=== PATIENT | male | born 1940 | race Caucasian/White ===

== ENCOUNTER 2016-05-17 13:18 | Day surgery (SDC) | payer OTHER ==
[~2016-05-17] VITALS: Ht 182.9 cm; Wt 86.2 kg
[~2016-05-17 13:18] MED LIST: AMIODARONE HCL200 MG PO; ASPIR 8181 M1 PO; ATORVASTATIN CA40 MG PO; BICALUTAMIDE50 MG PO; CALCITRIOL0.25 MCG PO; CALCIUM ACETAT667 MG PO; CARDIZEM CD120 MG PO; CARVEDILOL6.25 MG PO; CLOTRIMAZOLE15 GM TP; HYDROCODON-ACE1 EAC7 PO; LEVAQUIN500 MG PO; NABI650T PO; SODIUM POL15 GM/60 M PO
[2016-05-17 14:47] LABS: METH RESISTANT S AUREUS PCR NEGATIVE (NEGATIVE)
[2016-05-17 14:48] LABS: PROBE CHECK PASS; SPECIMEN PROCESSING CONTROL PASS
== END 2016-05-17 16:58 ==
LOC: CATH 13:18
PROVIDERS: Surgery
PROC: 02HV33Z Insertion of Infusion Device into Superior Vena Cava, Percutaneous Approach (ICD-10-PCS; principal; 2016-05-17)
DX: T82.898A Other specified complication of vascular prosthetic devices, implants and grafts, initial encounter (principal); Y83.8 Other surgical procedures as the cause of abnormal reaction of the patient, or of later complication, without mention of misadventure at the time of the procedure; Z99.2 Dependence on renal dialysis; N18.6 End stage renal disease
CPT/HCPCS: 87641; C1750; J1644; J2250; J3010; S0020

== ENCOUNTER 2016-07-21 16:21 | Emergency (ER) | payer OTHER ==
[~2016-07-21] VITALS: Ht 180.3 cm; Wt 89.4 kg
[2016-07-21 17:13] VITALS: BP 114/74
[2016-07-21 17:25] LABS: ADD MIUA? YES; BILIRUBIN NEGATIVE; BLOOD MODERATE; COLOR YELLOW ((YELLOW)); GLUCOSE (STRIP) NEGATIVE; KETONES NEGATIVE; LEUKOCYTES LARGE; NITRITE NEGATIVE; PROTEIN (STRIP) 100; SPECIFIC GRAVITY 1.006 (1.000-1.030); UROBILINOGEN 0.2 MG/DL (0.2-1.0)
[2016-07-21 17:55] LABS: BACTERIA NONE SEEN /HPF; EPITHELIAL CELLS NONE SEEN /HPF; MUCUS NONE SEEN /LPF; RED BLOOD CELLS TNTC /HPF (0-5); UCUL ADDED? YES; WHITE BLOOD CELLS TNTC /HPF (0-5)
== END 2016-07-21 18:24 | disposition home or self-care (01) ==
LOC: EME 16:21 → EXP 16:21
PROVIDERS: Nurse Practitioner Family
PROC: 0T9B70Z Drainage of Bladder with Drainage Device, Via Natural or Artificial Opening (ICD-10-PCS; principal; 2016-07-21)
DX: Z46.6 Encounter for fitting and adjustment of urinary device (principal); I25.2 Old myocardial infarction; Z85.46 Personal history of malignant neoplasm of prostate; Z87.891 Personal history of nicotine dependence; Z99.2 Dependence on renal dialysis; N19 Unspecified kidney failure
CPT/HCPCS: 81003; 87086; 99281; 99283

== ENCOUNTER 2016-09-13 11:46 | Day surgery (SDC) | payer OTHER ==
[~2016-09-13] VITALS: Ht 182.9 cm; Wt 84.0 kg
[~2016-09-13 11:46] MED LIST changes: +BACTRIM,SEPT1 TABLET PO; +LAXATIVE SUPPOS10 MG PR; +LO-DOSE ASPIRIN81 M2 PO; +NEPHRO-VITE,1 TABLET PO; +SENSIPAR30 MG PO; +SIMVASTATIN40 MG PO; +TRAZODONE HCL50 MG PO
[2016-09-13 12:15] LABS: HEMATOCRIT 38.1 % (38.0-50.0); MCH 30.5 PG (29.0-34.0); MCHC 31.8 G/DL (30.0-36.0); MEAN PLAT.VOLUME 10.9 uM^3 (9.0-12.4); PLATELET COUNT 254 K/uL (156-360); RBC DIS.WIDTH-CV 16.2 % (11.8-14.6); RBC DIS.WIDTH-SD 56.1 % (39-53); RED BLOOD COUNT 3.97 M/uL (4.00-5.50); WHITE BLOOD COUNT 8.5 K/uL (4.1-10.2)
[2016-09-13 12:38] LABS: ANION GAP 10 MEQ/L (2-14); CHLORIDE 103 MEQ/L (99-109); GFR ESTIMATE (CALCULATED) 8 mL/min/; GLUCOSE 112 mg/dL (70-99); POTASSIUM 5.6 MEQ/L (3.7-5.4); SAMPLE HEMOLYSIS CHECK 0; SAMPLE ICTERIC CHECK 0; SAMPLE LIPEMIA CHECK 0; SODIUM 138 MEQ/L (136-147); UREA NITROGEN (BUN) 53 mg/dL (9-23)
[2016-09-13 12:41] VITALS: BP 121/68
[2016-09-13 13:49] LABS: METH RESISTANT S AUREUS PCR NEGATIVE (NEGATIVE); PROBE CHECK PASS; SPECIMEN PROCESSING CONTROL PASS
[2016-09-13 16:05] LABS: POINT-OF-CARE METER ID UU13113675
[2016-09-13 16:46] VITALS: BP 122/61
[2016-09-13 17:07] VITALS: BP 119/63
== END 2016-09-13 17:25 ==
LOC: SDC 11:46
PROVIDERS: Surgery
PROC: 05SD0ZZ Reposition Right Cephalic Vein, Open Approach (ICD-10-PCS; principal; 2016-09-13)
DX: E11.22 Type 2 diabetes mellitus with diabetic chronic kidney disease (principal); N18.6 End stage renal disease; Z99.2 Dependence on renal dialysis; Z88.0 Allergy status to penicillin; I25.10 Atherosclerotic heart disease of native coronary artery without angina pectoris; I25.2 Old myocardial infarction; F17.290 Nicotine dependence, other tobacco product, uncomplicated; R00.1 Bradycardia, unspecified; Z79.82 Long term (current) use of aspirin
CPT/HCPCS: 80048; 82948; 85027; 87641; J1644; J2250; J2405; J2720; J3010

== ENCOUNTER 2016-10-09 12:18 | Inpatient (IN) | payer OTHER ==
[~2016-10-09] VITALS: Ht 182.9 cm; Wt 90.0 kg
[2016-10-09 13:24] LABS: HEMATOCRIT 29.9 % (38.0-50.0); MCH 30.1 PG (29.0-34.0); MCHC 32.1 G/DL (30.0-36.0); MCV 93.7 FL (86-99); MEAN PLAT.VOLUME 9.9 uM^3 (9.0-12.4); PLATELET COUNT 270 K/uL (156-360); RBC DIS.WIDTH-CV 14.9 % (11.8-14.6); RED BLOOD COUNT 3.19 M/uL (4.00-5.50); WHITE BLOOD COUNT 9.6 K/uL (4.1-10.2)
[2016-10-09 13:33] LABS: CHLORIDE 102 mEq/L (99-109); POTASSIUM 4.9 mEq/L (3.7-5.4); SODIUM 137 mEq/L (136-147)
[2016-10-09 13:34] LABS: GLUCOSE 102 mg/dL (70-99)
[2016-10-09 13:36] LABS: ANION GAP 11 MEQ/L (2-14)
[2016-10-09 13:38] LABS: GFR ESTIMATE (CALCULATED) 11 mL/min/
[2016-10-09 13:39] LABS: UREA NITROGEN (BUN) 67 mg/dL (9-23)
[2016-10-09 13:44] LABS: TROP-I INTERPRETATION NEGATIVE; TROPONIN-I < 0.01 ng/mL (0.0-0.30)
[2016-10-09 13:52] LABS: PROTHROMBIN TIME 10.1 (9.2-11.2); PTT 30.4 (25-32)
[2016-10-09] MEDS ORDERED: NORCO 5/3251 TABLET PO (14:57)
[2016-10-09] MEDS ORDERED: PROAMATINE10 MG PO (14:58)
[2016-10-09 18:36] VITALS: BP 127/65
[2016-10-09 19:18] VITALS: BP 105/56
[2016-10-09 19:59] LABS: TROP-I INTERPRETATION NEGATIVE; TROPONIN-I < 0.01 ng/mL (0.0-0.30)
[2016-10-09 23:54] VITALS: BP 100/56
[2016-10-10 05:04] VITALS: BP 95/54
[2016-10-10 07:12] LABS: HEMATOCRIT 29.5 % (38.0-50.0); MCH 30.4 PG (29.0-34.0); MCHC 31.9 G/DL (30.0-36.0); MCV 95.5 FL (86-99); MEAN PLAT.VOLUME 10.4 uM^3 (9.0-12.4); PLATELET COUNT 292 K/uL (156-360); RBC DIS.WIDTH-CV 15.1 % (11.8-14.6); RED BLOOD COUNT 3.09 M/uL (4.00-5.50); WHITE BLOOD COUNT 8.9 K/uL (4.1-10.2)
[2016-10-10 08:06] LABS: ANION GAP 11 MEQ/L (2-14); CHLORIDE 106 MEQ/L (99-109); GFR ESTIMATE (CALCULATED) 9 mL/min/; GLUCOSE 88 mg/dL (70-99); POTASSIUM 5.5 MEQ/L (3.7-5.4); SAMPLE HEMOLYSIS CHECK 0; SAMPLE ICTERIC CHECK 0; SAMPLE LIPEMIA CHECK 0; SODIUM 139 MEQ/L (136-147); UREA NITROGEN (BUN) 77 mg/dL (9-23)
[2016-10-10 08:40] VITALS: BP 116/62
[2016-10-10 12:03] VITALS: BP 104/58
[2016-10-10 12:35] VITALS: BP 135/71
[2016-10-10 12:54] LABS: PROTHROMBIN TIME 10.5 (9.2-11.2)
[2016-10-10 17:27] VITALS: BP 106/61
[2016-10-10 19:43] LABS: TROP-I INTERPRETATION NEGATIVE; TROPONIN-I < 0.01 ng/mL (0.0-0.30)
[2016-10-10 20:02] VITALS: BP 112/62
[2016-10-11] VITALS (7 sets, daily range): BP systolic 99–144; BP diastolic 48–69
[2016-10-11 05:21] LABS: HEMATOCRIT 30.1 % (38.0-50.0); MCH 30.3 PG (29.0-34.0); MCHC 31.9 G/DL (30.0-36.0); MEAN PLAT.VOLUME 10.4 uM^3 (9.0-12.4); PLATELET COUNT 301 K/uL (156-360); RBC DIS.WIDTH-CV 15.2 % (11.8-14.6); RED BLOOD COUNT 3.17 M/uL (4.00-5.50); WHITE BLOOD COUNT 9.7 K/uL (4.1-10.2)
[2016-10-11 05:28] LABS: INTER. NORMALIZED RATIO 1.1
[2016-10-11 05:47] LABS: ANION GAP 9 MEQ/L (2-14); CHLORIDE 102 MEQ/L (99-109); GFR ESTIMATE (CALCULATED) 12 mL/min/; GLUCOSE 85 mg/dL (70-99); POTASSIUM 5.1 MEQ/L (3.7-5.4); SAMPLE HEMOLYSIS CHECK 0; SAMPLE ICTERIC CHECK 0; SAMPLE LIPEMIA CHECK 0; SODIUM 138 MEQ/L (136-147); UREA NITROGEN (BUN) 50 mg/dL (9-23)
[2016-10-11] MEDS ORDERED: DILTIAZEM 24HR180 MG PO (15:26)
[2016-10-11] MEDS ORDERED: COUMADIN5 MG PO (15:26)
[2016-10-12 03:20] VITALS: BP 103/56
[2016-10-12 07:21] LABS: INTER. NORMALIZED RATIO 1.2; PROTHROMBIN TIME 11.8 (9.2-11.2)
[2016-10-12 08:15] VITALS: BP 107/64
== END 2016-10-12 14:15 | disposition home or self-care (01) | DRG 308 ==
LOC: EME 12:18 → EDOF 16:43 → 4EAST 16:43
PROVIDERS: Emergency Medicine; Hospitalist; Internal Medicine; Internal Medicine Cardiovascular Disease
PROC: 5A1D60Z (ICD-10-PCS; principal; 2016-10-10)
DX: I48.0 Paroxysmal atrial fibrillation (principal); N18.6 End stage renal disease; E87.5 Hyperkalemia; Z99.2 Dependence on renal dialysis; R33.9 Retention of urine, unspecified; D63.1 Anemia in chronic kidney disease; R74.0 Nonspecific elevation of levels of transaminase and lactic acid dehydrogenase [LDH]; I25.10 Atherosclerotic heart disease of native coronary artery without angina pectoris; F17.210 Nicotine dependence, cigarettes, uncomplicated; I48.92 Unspecified atrial flutter
CPT/HCPCS: 71010; 80048; 84443; 84484; 85027; 85610; 85730; 93005; 93306; 99281; 99285; G0378; J1270; J1644; J7040; J7050

== ENCOUNTER → 2017-01-12 | Outpatient (CLI) | payer OTHER ==
[~2017-01-12] MED LIST changes: +COUMADIN5 MG PO; +DILTIAZEM 24HR180 MG PO; +NORCO 5/3251 TABLET PO; +PROAMATINE10 MG PO; +RENAPLEX D PO
== END | disposition home or self-care (01) ==
LOC: AMB 10:30
PROC: 02PYX3Z Removal of Infusion Device from Great Vessel, External Approach (ICD-10-PCS; principal; 2017-01-12)
DX: Z45.2 Encounter for adjustment and management of vascular access device (principal); N18.6 End stage renal disease; Z99.2 Dependence on renal dialysis

== ENCOUNTER 2017-09-18 01:20 | Inpatient (IN) | payer OTHER ==
[~2017-09-18] VITALS: Ht 182.9 cm; Wt 60.8 kg
[2017-09-18] VITALS (14 sets, daily range): BP systolic 78–126; BP diastolic 44–64
[2017-09-18 02:04] LABS: HEMATOCRIT 35.9 % (38.0-50.0); HEMOGLOBIN 11.7 G/DL (12.5-16.6); MCH 27.7 PG (29.0-34.0); MCHC 32.6 G/DL (30.0-36.0); MCV 85.1 FL (86-99); PLATELET COUNT 459 K/uL (156-360); RBC DIS.WIDTH-CV 18.6 % (11.8-14.6); RBC DIS.WIDTH-SD 57.3 % (39-53); RED BLOOD COUNT 4.22 M/uL (4.00-5.50)
[2017-09-18 02:05] LABS: WHITE BLOOD COUNT 39.2 K/uL (4.1-10.2)
[2017-09-18 02:17] LABS: ALBUMIN 2.6 g/dL (3.2-4.8); CHLORIDE 95 mEq/L (99-109); POTASSIUM 5.6 mEq/L (3.7-5.4); SODIUM 139 mEq/L (136-147)
[2017-09-18 02:19] LABS: GLUCOSE 100 mg/dL (70-99); TOTAL PROTEIN 6.4 g/dL (6.4-8.3)
[2017-09-18 02:21] LABS: TOTAL BILIRUBIN 0.5 mg/dL (0.0-1.0)
[2017-09-18 02:23] LABS: ALKALINE PHOSPHATASE 99 IU/L (3-129); CREATININE 8.6 mg/dL (0.6-1.3); GFR ESTIMATE (CALCULATED) 6 mL/min/ (58.99-99999)
[2017-09-18 02:24] LABS: UREA NITROGEN (BUN) 61 mg/dL (9-23)
[2017-09-18 02:25] LABS: AST (GOT) 19 IU/L (2-34); DIRECT BILIRUBIN 0.4 mg/dL (0.0-0.3)
[2017-09-18 02:26] LABS: ALT (GPT) 86 IU/L (3-49); LIPASE 20 U/L (1.0-51.0)
[2017-09-18 03:34] LABS: APPEARANCE TURBID ((CLEAR)); BILIRUBIN NEGATIVE; BLOOD LARGE; COLOR BROWN ((YELLOW)); GLUCOSE (STRIP) NEGATIVE; KETONES TRACE; LEUKOCYTES LARGE; NITRITE NEGATIVE; PROTEIN (STRIP) 300; SPECIFIC GRAVITY 1.015 (1.000-1.030); UROBILINOGEN 0.2 MG/DL (0.2-1.0)
[2017-09-18 03:36] LABS: UCUL ADDED? YES; WHITE BLOOD CELLS TNTC /HPF (0-5)
[2017-09-18 04:31] LABS: INTER. NORMALIZED RATIO 1.6
[2017-09-18 20:50] LABS: BASE EXCESS -2.8 mEq/L (-3 to +3); CARBOXY HGB 0.2 % (0-5); METHEMOGLOBIN 1.2 % (0-1.5); PCO2 50 mm Hg (35-45); PO2 99 mm Hg (80-100); SITE LR; pH 7.29 (7.35-7.45)
[2017-09-18 20:51] LABS: COMMENTS - BLOOD GASES C+; DEVICE VENT; FI02 60 %; MECHANICAL RATE 14 resp/min; MODE AC; PEEP 5 CM/H20; TIDAL VOLUME 500 ML; TOTAL RESP RATE 14 resp/min
[2017-09-18 22:10] LABS: BASE EXCESS -2.2 mEq/L (-3 to +3); BICARBONATE 23.2 mEq/L (22-26); CARBOXY HGB 0.3 % (0-5); METHEMOGLOBIN 1.5 % (0-1.5); PO2 81 mm Hg (80-100); pH 7.36 (7.35-7.45)
[2017-09-18 22:11] LABS: COMMENTS - BLOOD GASES C+; DEVICE VENT; FI02 50 %; MECHANICAL RATE 20 resp/min; MODE AC; PCO2 41 mm Hg (35-45); PEEP 5 CM/H20; SITE LB; TIDAL VOLUME 500 ML; TOTAL RESP RATE 20 resp/min
[2017-09-19] VITALS (23 sets, daily range): BP systolic 85–143; BP diastolic 45–64
[2017-09-19 05:42] LABS: HEMATOCRIT 32.6 % (38.0-50.0); HEMOGLOBIN 9.8 G/DL (12.5-16.6); MCH 26.7 PG (29.0-34.0); MCHC 30.1 G/DL (30.0-36.0); MCV 88.8 FL (86-99); PLATELET COUNT 556 K/uL (156-360); RBC DIS.WIDTH-CV 18.8 % (11.8-14.6); RED BLOOD COUNT 3.67 M/uL (4.00-5.50)
[2017-09-19 05:54] LABS: CHLORIDE 99 MEQ/L (99-109); CREATININE 8.1 MG/DL (0.6-1.3); GFR ESTIMATE (CALCULATED) 7 mL/min/ (58.99-99999); GLUCOSE 113 mg/dL (70-99); POTASSIUM 5.8 MEQ/L (3.7-5.4); SODIUM 140 MEQ/L (136-147); UREA NITROGEN (BUN) 71 mg/dL (9-23); VANCOMYCIN, TROUGH 10.6 MCG/ML (10-20)
[2017-09-19 06:22] LABS: ANISOCYTOSIS 2+; BURR CELLS 1+; MACROCYTES 2+; OVALOCYTES 1+; PLATELET CLUMPS PRESENT - PLATELET COUNT APPEARS ADQ.; POIKILOCYTOSIS 2+; TOX.VACUOLIZATION 1+; TOXIC GRANULATION 2+
[2017-09-19 06:29] LABS: MAGNESIUM 2.9 mg/dl (1.3-2.7); PHOSPHORUS 7.3 mg/dL (2.5-4.9)
[2017-09-19 06:50] LABS: ABS NEUTROPHIL COUNT 40.1; BAND NEUTROPHILS 1.7 % (0-8.0); EOSINOPHIL ABS CT 0; LYMPHOCYTES 0.9 % (15.0-45.0); MONOCYTES 1.3 % (0-9.0); SEG.NEUTROPHILS 96.1 % (46.0-76.0)
[2017-09-19 15:07] LABS: HEPATITIS B SURFACE ANTIBODY Nonreactive; HEPATITIS B SURFACE ANTIGEN Nonreactive
[2017-09-20] VITALS (24 sets, daily range): BP systolic 86–150; BP diastolic 42–75
[2017-09-20 04:52] LABS: BASOPHIL (%) 0.1 % (0-1); EOSINOPHIL (%) 0.1 % (0-5); HEMATOCRIT 29.9 % (38.0-50.0); HEMOGLOBIN 9.5 G/DL (12.5-16.6); IMMATURE GRANULOCYTE (%) 0.9 % (0.0-0.7); LYMPHOCYTE (%) 3.2 % (15-42); LYMPHOCYTE COUNT 0.6 K/uL (1.0-2.8); MCH 27.5 PG (29.0-34.0); MCHC 31.8 G/DL (30.0-36.0); MCV 86.7 FL (86-99); MONOCYTE COUNT 0.5 K/uL (0-0.8); NEUTROPHIL (%) 92.7 % (45-76); NEUTROPHIL COUNT 16.3 K/uL (1.8-6.4); RBC DIS.WIDTH-CV 18.9 % (11.8-14.6); RBC DIS.WIDTH-SD 58.8 % (39-53); RED BLOOD COUNT 3.45 M/uL (4.00-5.50); WHITE BLOOD COUNT 17.6 K/uL (4.1-10.2)
[2017-09-20 04:57] LABS: CHLORIDE 102 mEq/L (99-109); SODIUM 142 mEq/L (136-147)
[2017-09-20 04:59] LABS: GLUCOSE 88 mg/dL (70-99)
[2017-09-20 05:03] LABS: UREA NITROGEN (BUN) 41 mg/dL (9-23)
[2017-09-20 05:16] LABS: GFR ESTIMATE (CALCULATED) 12 mL/min/ (58.99-99999); POTASSIUM 4.1 mEq/L (3.7-5.4)
[2017-09-20 05:48] LABS: ANISOCYTOSIS 1+; GIANT PLATELETS 1+; MACROCYTES 1+; OVALOCYTES 1+; PLAT.SUFFICIENCY ADEQUATE; POLYCHROMASIA 1+; TARGET CELLS 1+
[2017-09-20 05:55] LABS: PLATELET COUNT 372 K/uL (156-360)
[2017-09-21] VITALS (22 sets, daily range): BP systolic 69–154; BP diastolic 39–109
[2017-09-21 05:36] LABS: BASOPHIL (%) 0.2 % (0-1); EOSINOPHIL (%) 0.1 % (0-5); HEMATOCRIT 32.3 % (38.0-50.0); HEMOGLOBIN 9.8 G/DL (12.5-16.6); IMMATURE GRANULOCYTE (%) 1.4 % (0.0-0.7); LYMPHOCYTE (%) 2.5 % (15-42); LYMPHOCYTE COUNT 0.5 K/uL (1.0-2.8); MCH 26.6 PG (29.0-34.0); MCHC 30.3 G/DL (30.0-36.0); MCV 87.8 FL (86-99); MONOCYTE (%) 3.7 % (3-12); MONOCYTE COUNT 0.7 K/uL (0-0.8); NEUTROPHIL (%) 92.1 % (45-76); NEUTROPHIL COUNT 17.9 K/uL (1.8-6.4); PLATELET COUNT 329 K/uL (156-360); RBC DIS.WIDTH-SD 60.1 % (39-53); RED BLOOD COUNT 3.68 M/uL (4.00-5.50); WHITE BLOOD COUNT 19.5 K/uL (4.1-10.2)
[2017-09-21 05:37] LABS: INTER. NORMALIZED RATIO 1.4
[2017-09-21 05:40] LABS: PTT 29.9 SEC (25-37)
[2017-09-21 06:14] LABS: CHLORIDE 100 MEQ/L (99-109); CREATININE 5.8 MG/DL (0.6-1.3); GFR ESTIMATE (CALCULATED) 10 mL/min/ (58.99-99999); GLUCOSE 68 mg/dL (70-99); POTASSIUM 4.1 MEQ/L (3.7-5.4); SODIUM 138 MEQ/L (136-147); UREA NITROGEN (BUN) 53 mg/dL (9-23)
[2017-09-21 06:15] LABS: MAGNESIUM 2.3 mg/dl (1.3-2.7); PHOSPHORUS 3.8 mg/dL (2.5-4.9)
[2017-09-21 08:15] LABS: BASE EXCESS -1.3 mEq/L (-3 to +3); BICARBONATE 22.4 mEq/L (22-26); METHEMOGLOBIN 1.3 % (0-1.5); PCO2 33 mm Hg (35-45); PO2 63 mm Hg (80-100); pH 7.44 (7.35-7.45)
[2017-09-21 08:16] LABS: COMMENTS - BLOOD GASES A+C+; DEVICE HHFNC; FI02 40 %; O2 FLOW 40 L/MIN; SITE RR; TOTAL RESP RATE 30 resp/min
[2017-09-21 13:27] LABS: CREATINE KINASE 74 IU/L (1-294)
[2017-09-21 14:28] LABS: TRIGLYCERIDES 146 MG/DL (Normal: <150)
[2017-09-22] VITALS (21 sets, daily range): BP systolic 88–132; BP diastolic 39–64
[2017-09-22 05:28] LABS: BASOPHIL (%) 0.7 % (0-1); BASOPHIL COUNT 0.2 K/uL (0-0.1); EOSINOPHIL (%) 0.9 % (0-5); EOSINOPHIL COUNT 0.2 K/uL (0-0.3); HEMATOCRIT 32.3 % (38.0-50.0); IMMATURE GRANULOCYTE (%) 4.1 % (0.0-0.7); LYMPHOCYTE (%) 4.8 % (15-42); MCH 26.7 PG (29.0-34.0); MCV 86.1 FL (86-99); MONOCYTE (%) 3.5 % (3-12); MONOCYTE COUNT 0.7 K/uL (0-0.8); NEUTROPHIL COUNT 17.7 K/uL (1.8-6.4); PLATELET COUNT 354 K/uL (156-360); RBC DIS.WIDTH-CV 19.8 % (11.8-14.6); RBC DIS.WIDTH-SD 60.1 % (39-53); RED BLOOD COUNT 3.75 M/uL (4.00-5.50); WHITE BLOOD COUNT 20.6 K/uL (4.1-10.2)
[2017-09-22 05:53] LABS: CHLORIDE 102 MEQ/L (99-109); CREATINE KINASE 63 IU/L (1-294); GFR ESTIMATE (CALCULATED) 14 mL/min/ (58.99-99999); POTASSIUM 4.2 MEQ/L (3.7-5.4); SODIUM 141 MEQ/L (136-147); UREA NITROGEN (BUN) 33 mg/dL (9-23)
[2017-09-22 05:55] LABS: CREATININE 4.5 MG/DL (0.6-1.3); GLUCOSE 93 mg/dL (70-99)
[2017-09-22 10:26] LABS: CARBOXY HGB 0.3 % (0-5); METHEMOGLOBIN 1.1 % (0-1.5); PO2 53 mm Hg (80-100); pH 7.45 (7.35-7.45)
[2017-09-22 10:27] LABS: BASE EXCESS 2.3 mEq/L (-3 to +3); BICARBONATE 26.4 mEq/L (22-26); COMMENTS - BLOOD GASES C+; DEVICE VENT; FI02 30 %; MECHANICAL RATE 20 resp/min; MODE ACVC+; PCO2 38 mm Hg (35-45); SITE LR; TOTAL RESP RATE 20 resp/min
[2017-09-23] VITALS (26 sets, daily range): BP systolic 75–133; BP diastolic 37–70
[2017-09-23 00:12] LABS: INTER. NORMALIZED RATIO 1.5
[2017-09-23 00:15] LABS: PTT 30.7 SEC (25-37)
[2017-09-23 07:00] LABS: VANCOMYCIN, TROUGH 18.9 MCG/ML (10-20)
[2017-09-24] VITALS (25 sets, daily range): BP systolic 90–143; BP diastolic 49–77
[2017-09-24 03:03] LABS: HEMATOCRIT 29.7 % (38.0-50.0); HEMOGLOBIN 9.6 G/DL (12.5-16.6); MCH 27.4 PG (29.0-34.0); MCHC 32.3 G/DL (30.0-36.0); MCV 84.6 FL (86-99); PLATELET COUNT 436 K/uL (156-360); RBC DIS.WIDTH-CV 20.1 % (11.8-14.6); RBC DIS.WIDTH-SD 61.1 % (39-53); RED BLOOD COUNT 3.51 M/uL (4.00-5.50); WHITE BLOOD COUNT 27.2 K/uL (4.1-10.2)
[2017-09-24 03:52] LABS: VANCOMYCIN, TROUGH 17.1 MCG/ML (10-20)
[2017-09-24 09:04] LABS: ALBUMIN 2.4 G/DL (3.2-4.8); CHLORIDE 101 MEQ/L (99-109); CREATININE 5.7 MG/DL (0.6-1.3); GFR ESTIMATE (CALCULATED) 10 mL/min/ (58.99-99999); GLUCOSE 91 mg/dL (70-99); PHOSPHORUS 5.7 mg/dL (2.5-4.9); POTASSIUM 4.1 MEQ/L (3.7-5.4); SODIUM 137 MEQ/L (136-147); UREA NITROGEN (BUN) 51 mg/dL (9-23)
[2017-09-25] VITALS (23 sets, daily range): BP systolic 95–143; BP diastolic 48–66
[2017-09-25 01:12] LABS: HEMATOCRIT 30.9 % (38.0-50.0); HEMOGLOBIN 9.9 G/DL (12.5-16.6); MCH 27.3 PG (29.0-34.0); MCV 85.4 FL (86-99); PLATELET COUNT 353 K/uL (156-360); RBC DIS.WIDTH-CV 20.2 % (11.8-14.6); RBC DIS.WIDTH-SD 61.1 % (39-53); RED BLOOD COUNT 3.62 M/uL (4.00-5.50); WHITE BLOOD COUNT 24.5 K/uL (4.1-10.2)
[2017-09-25 01:21] LABS: CHLORIDE 101 mEq/L (99-109); POTASSIUM 4.3 mEq/L (3.7-5.4); SODIUM 139 mEq/L (136-147)
[2017-09-25 01:22] LABS: GLUCOSE 101 mg/dL (70-99)
[2017-09-25 01:26] LABS: GFR ESTIMATE (CALCULATED) 16 mL/min/ (58.99-99999)
[2017-09-25 01:27] LABS: UREA NITROGEN (BUN) 28 mg/dL (9-23)
[2017-09-25 01:29] LABS: CREATINE KINASE 45 IU/L (1-294); CREATININE 3.9 mg/dL (0.6-1.3)
[2017-09-25 07:18] LABS: BASOPHIL (%) 0.7 % (0-1); BASOPHIL COUNT 0.2 K/uL (0-0.1); EOSINOPHIL (%) 0.9 % (0-5); EOSINOPHIL COUNT 0.2 K/uL (0-0.3); LYMPHOCYTE (%) 3.5 % (15-42); LYMPHOCYTE COUNT 0.9 K/uL (1.0-2.8); MONOCYTE (%) 4.4 % (3-12); MONOCYTE COUNT 1.1 K/uL (0-0.8); NEUTROPHIL (%) 85.5 % (45-76); PLAT.SUFFICIENCY ADEQUATE
[2017-09-26] VITALS (22 sets, daily range): BP systolic 78–165; BP diastolic 43–74
[2017-09-26 04:39] LABS: INTER. NORMALIZED RATIO 1.5
[2017-09-26 04:42] LABS: PTT 62.6 SEC (25-37)
[2017-09-26 05:49] LABS: BASOPHIL (%) 0.4 % (0-1); BASOPHIL COUNT 0.1 K/uL (0-0.1); EOSINOPHIL COUNT 0.2 K/uL (0-0.3); HEMATOCRIT 28.4 % (38.0-50.0); IMMATURE GRANULOCYTE (%) 4.9 % (0.0-0.7); LYMPHOCYTE (%) 4.1 % (15-42); LYMPHOCYTE COUNT 0.9 K/uL (1.0-2.8); MCH 26.9 PG (29.0-34.0); MCHC 31.7 G/DL (30.0-36.0); MONOCYTE (%) 5.1 % (3-12); MONOCYTE COUNT 1.2 K/uL (0-0.8); NEUTROPHIL (%) 84.5 % (45-76); NEUTROPHIL COUNT 19.2 K/uL (1.8-6.4); PLATELET COUNT 397 K/uL (156-360); RBC DIS.WIDTH-CV 20.1 % (11.8-14.6); RBC DIS.WIDTH-SD 60.9 % (39-53); RED BLOOD COUNT 3.34 M/uL (4.00-5.50); WHITE BLOOD COUNT 22.7 K/uL (4.1-10.2)
[2017-09-26 06:19] LABS: CHLORIDE 100 MEQ/L (99-109); CREATINE KINASE 15 IU/L (1-294); GFR ESTIMATE (CALCULATED) 12 mL/min/ (58.99-99999); GLUCOSE 118 mg/dL (70-99); POTASSIUM 4.3 MEQ/L (3.7-5.4); SODIUM 138 MEQ/L (136-147); UREA NITROGEN (BUN) 36 mg/dL (9-23)
[2017-09-26 06:20] LABS: CREATININE 4.9 MG/DL (0.6-1.3)
[2017-09-27] VITALS (18 sets, daily range): BP systolic 80–136; BP diastolic 47–65
[2017-09-28] VITALS (19 sets, daily range): BP systolic 60–135; BP diastolic 30–80
[2017-09-28 06:10] LABS: BASE EXCESS 0.7 mEq/L (-3 to +3); METHEMOGLOBIN 1.3 % (0-1.5); pH 7.38 (7.35-7.45)
[2017-09-28 06:11] LABS: COMMENTS - BLOOD GASES C+; DEVICE VENT; FI02 30 %; MODE SPONT; PCO2 44 mm Hg (35-45); PEEP 5 CM/H20; PO2 41 mm Hg (80-100); PRES. SUPPORT 10 CM/H2O; SITE LR
[2017-09-28 06:48] LABS: HEMATOCRIT 24.1 % (38.0-50.0); HEMOGLOBIN 7.2 G/DL (12.5-16.6); MCH 26.7 PG (29.0-34.0); MCHC 29.9 G/DL (30.0-36.0); MCV 89.3 FL (86-99); PLATELET COUNT 446 K/uL (156-360); RBC DIS.WIDTH-CV 20.8 % (11.8-14.6); RBC DIS.WIDTH-SD 67.3 % (39-53); WHITE BLOOD COUNT 24.6 K/uL (4.1-10.2)
[2017-09-28 06:53] LABS: CHLORIDE 99 MEQ/L (99-109); CREATININE 4.7 MG/DL (0.6-1.3); GFR ESTIMATE (CALCULATED) 13 mL/min/ (58.99-99999); GLUCOSE 109 mg/dL (70-99); POTASSIUM 4.6 MEQ/L (3.7-5.4); SODIUM 135 MEQ/L (136-147); UREA NITROGEN (BUN) 32 mg/dL (9-23)
[2017-09-28 06:57] LABS: ABS NEUTROPHIL COUNT 23.3; BAND NEUTROPHILS 2.6 % (0-8.0); EOSINOPHIL ABS CT 0; LYMPHOCYTES 2.6 % (15.0-45.0); METAMYELOCYTES 0.9 %; MONOCYTES 1.7 % (0-9.0); SEG.NEUTROPHILS 92.2 % (46.0-76.0)
[2017-09-28 11:02] LABS: ANISOCYTOSIS 2+; HYPOCHROMASIA 1+; MACROCYTES 2+; OVALOCYTES 1+; PLAT.SUFFICIENCY INCREASED; POLYCHROMASIA 1+; TARGET CELLS 2+
[2017-09-28 13:22] LABS: INTER. NORMALIZED RATIO 1.4
[2017-09-28 13:25] LABS: PTT 64.9 SEC (25-37)
[2017-09-29 08:00] VITALS: BP 86/45
[2017-09-30 18:19] VITALS: BP 0/0
== END 2017-09-30 18:23 | disposition hospice, home (50) | DRG 653 ==
LOC: EME → EDBD 01:20 → 4WEST 04:45 → EDOF 04:45 → ENRESERV 04:49 → 4WEST 10:49 → ENRESERV 09-29 → 4WEST 09-29 12:30 → ENRESERV 09-29 14:58 → 5EAST 09-29 17:27
PROVIDERS: Emergency Medicine; Internal Medicine; Internal Medicine Critical Care Medicine; Internal Medicine Nephrology; Obstetrics & Gynecology; Student in an Organized Health Care Education/Training Program; Surgery
DX: N32.89 Other specified disorders of bladder (principal); A41.9 Sepsis, unspecified organism; K65.0 Generalized (acute) peritonitis; R65.21 Severe sepsis with septic shock; J96.01 Acute respiratory failure with hypoxia; I95.81 Postprocedural hypotension; J95.851 Ventilator associated pneumonia; B95.62 Methicillin resistant Staphylococcus aureus infection as the cause of diseases classified elsewhere; E43 Unspecified severe protein-calorie malnutrition; N39.0 Urinary tract infection, site not specified; B96.89 Other specified bacterial agents as the cause of diseases classified elsewhere; C61 Malignant neoplasm of prostate; C79.11 Secondary malignant neoplasm of bladder; C79.51 Secondary malignant neoplasm of bone; C77.9 Secondary and unspecified malignant neoplasm of lymph node, unspecified; E87.2 Acidosis; E87.5 Hyperkalemia; Z66 Do not resuscitate; Z51.5 Encounter for palliative care; Y84.8 Other medical procedures as the cause of abnormal reaction of the patient, or of later complication, without mention of misadventure at the time of the procedure; I82.511 Chronic embolism and thrombosis of right femoral vein; K66.8 Other specified disorders of peritoneum; N18.6 End stage renal disease; Z99.2 Dependence on renal dialysis; Z91.15 Patient's noncompliance with renal dialysis; J44.9 Chronic obstructive pulmonary disease, unspecified; N40.1 Benign prostatic hyperplasia with lower urinary tract symptoms; N13.30 Unspecified hydronephrosis; R33.8 Other retention of urine; I48.2 Chronic atrial fibrillation; D64.9 Anemia, unspecified; C44.310 Basal cell carcinoma of skin of unspecified parts of face; R41.0 Disorientation, unspecified; K40.90 Unilateral inguinal hernia, without obstruction or gangrene, not specified as recurrent; I25.10 Atherosclerotic heart disease of native coronary artery without angina pectoris; R73.9 Hyperglycemia, unspecified; R64 Cachexia; G89.3 Neoplasm related pain (acute) (chronic); R60.0 Localized edema; I25.2 Old myocardial infarction; N50.89 Other specified disorders of the male genital organs; Z91.19 Patient's noncompliance with other medical treatment and regimen; F17.200 Nicotine dependence, unspecified, uncomplicated; Z63.8 Other specified problems related to primary support group; Z88.0 Allergy status to penicillin
CPT/HCPCS: 31500; 36600; 50433; 71045; 71250; 71275; 74176; 74177; 80048; 80069; 80076; 80202; 81003; 82330; 82550; 82550 91; 82803; 82948; 83605; 83690; 83735; 83880; 84100; 84478; 85025; 85027; 85610; 85730; 86706; 86850; 86900; 86901; 86920; 87040; 87070; 87075; 87076; 87077; 87081; 87086; 87147; 87186; 87205; 87340; 87641; 93005; 93971; 94002; 94003; 94640; 94640 76; 94760; 94799; 99202; 99281; 99285; C1751; C1753; C1769; C1894; J0153; J0610; J0692; J1100; J1160; J1630; J1644; J1815; J1885; J2020; J2060; J2185; J2250; J2270; J2405; J2704; J2710; J3010; J3370; J7030; J7050; J7643; P9016; P9045; P9047; S0028; S0030